=== PATIENT | male | born 1960 | race American Indian/Alaskan Native ===

== ENCOUNTER 2021-03-07 18:16 | Inpatient (IN) | payer MEDICARE ==
[2021-03-07 21:28] LABS: Basophils % (Auto) 0.6 % (0.0-1.8); Eosinophils # (Auto) 0.1 K/mm3 (0.0-0.4); Eosinophils % (Auto) 1.5 % (0.0-4.3); Hematocrit 31.3 % (35.5-45.6); Hemoglobin 10.1 gm/dl (11.8-15.2); Lymphocytes # (Auto) 1.1 K/mm3 (1.2-5.4); Lymphocytes % (Auto) 16.9 % (13.4-35.0); Mean Corpuscular HGB Conc 32 % (32-34); Mean Corpuscular Volume 83 fl (84-94); Monocytes # (Auto) 0.6 K/mm3 (0.0-0.8); Monocytes % (Auto) 9.5 % (0.0-7.3); Platelet Count 315 K/mm3 (140-440); Red Blood Count 3.76 M/mm3 (3.65-5.03); Red Cell Distribution Width 17.8 % (13.2-15.2)
[2021-03-07 21:45] LABS: Albumin 3.8 g/dL (3.9-5); Calcium 9.1 mg/dL (8.4-10.2)
--- NOTE | 2021-03-07 21:45 | Emergency Department Report ---
ED General Adult HPI - General Chief complaint: Medical Clearance Stated complaint: MISSED DIALYSIS Time Seen by Provider: 03/07/21 21:34 Source: EMS Mode of arrival: Stretcher Limitations: No Limitations - History of Present Illness Initial comments: Patient is 60 years old male end-stage renal disease on hemodialysis. Patient brought to the emergency room via EMS from a local senior living stating that patient missed dialysis. Patient stated that last dialysis was 1 week ago. Patient complaining of mild cough and shortness of breath but denied any other symptoms. Associated Symptoms: shortness of breath - Related Data Allergies Allergy/AdvReac Type Severity Reaction Status Date / Time lisinopril Allergy Hives Verified 03/07/21 18:21 ED Review of Systems ROS: Stated complaint: MISSED DIALYSIS Other details as noted in HPI Comment: All other systems reviewed and negative ED Past Medical Hx - Past Medical History Hx Hypertension: Yes Hx Renal Disease: Yes ED Physical Exam - General Limitations: No Limitations General appearance: alert, in no apparent distress - Head Head exam: Present: atraumatic, normocephalic, normal inspection - Eye Eye exam: Present: normal appearance - ENT ENT exam: Present: normal exam, mucous membranes moist - Neck Neck exam: Present: normal inspection, full ROM. Absent: tenderness, meningismus - Respiratory Respiratory exam: Present: normal lung sounds bilaterally - Cardiovascular Cardiovascular Exam: Present: regular rate, normal rhythm, normal heart sounds - GI/Abdominal GI/Abdominal exam: Present: soft, normal bowel sounds. Absent: distended, tenderness, guarding, rebound, rigid, mass, bruit, pulsatile mass, hernia - Back Exam Back exam: Present: normal inspection - Neurological Exam Neurological exam: Present: alert, oriented X3, CN II-XII intact. Absent: motor sensory deficit - Psychiatric Psychiatric exam: Present: normal mood - Skin Skin exam: Present: warm ED Course Vital Signs 03/07/21 18:21 Temperature 98.0 F Pulse Rate 80 Respiratory 16 Rate Blood Pressure 127/78 [Left] O2 Sat by Pulse 99 Oximetry ED Medical Decision Making - Lab Data Result diagrams: 03/07/21 20:59 03/07/21 20:59 - Radiology Data Radiology results: report reviewed - Medical Decision Making Patient is 60 years old male end-stage renal disease on hemodialysis. Patient brought to the emergency room via EMS from a local senior living stating that patient missed dialysis. Patient stated that last dialysis was 1 week ago. Patient complaining of mild cough and shortness of breath but denied any other symptoms. Vital signs remained stable. Labs reviewed that showed a potassium of 4.8, creatinine of 12.4 and a BUN of 70. I discussed the patient with Dr. Duran, patient person investigator and he advised to admit the patient to the hospital for dialysis in the morning. I discussed the patient with Dr. Salomon, Who agreed to admit the patient to medical service for further management. Critical Care Time: Yes Critical care time in (mins) excluding proc time.: 35 Critical care attestation.: If time is entered above; I have spent that time in minutes in the direct care of this critically ill patient, excluding procedure time. ED Disposition Clinical Impression: End-stage renal disease needing dialysis, Hypervolemia Disposition: 02 [facility]ORT TERM [facility]OSPITAL Is pt being admited?: Yes Condition: Stable
--- NOTE | 2021-03-07 22:10 | XRay Report ---
CHEST 1 VIEW INDICATION / CLINICAL INFORMATION: cough. COMPARISON: None available. FINDINGS: SUPPORT DEVICES: None. HEART / MEDIASTINUM: No significant abnormality. LUNGS / PLEURA: Mild prominence pulmonary vasculature. No focal consolidation. There is a 1.3 cm hype rdense nodule within the right midlung zone, likely reflecting calcified granuloma. Correlation with prior imaging would be of benefit. No pneumothorax. ADDITIONAL FINDINGS: No significant additional findings. IMPRESSION: 1. Mild pulmonary vascular congestion without focal consolidation. 2. 1.3 cm round nodule projecting over the right midlung zone, may represent calcified granuloma. Co rrelation with prior imaging may be of benefit. Signer Name: Kwaku Nichole MD Signed: 03/07/2021 10:06 PM Workstation Name: [id number]
[2021-03-08] MEDS ORDERED: MORPHINE 2 MG/1 ML INJ IV PRN (02:12)
[2021-03-08] MEDS ORDERED: MORPHINE 4 MG/1 ML INJ IV PRN (02:12)
[2021-03-08] MEDS ORDERED: MAGNESIUM HYDROXIDE (MOM) ORAL LIQD UDC PO PRN (02:12)
[2021-03-08] MEDS ORDERED: ACETAMINOPHEN 325 MG TAB PO PRN (02:12)
[2021-03-08] MEDS ORDERED: ONDANSETRON 4 MG/2 ML INJ IV PRN (02:12)
--- NOTE | 2021-03-08 02:21 | History and Physical Report ---
History of Present Illness Date of examination: 03/08/21 Date of admission: 03/08/2021 Chief complaint: Shortness of breath History of present illness: 60-year-old -[place] male with known history of end-stage renal disease on dialysis presents to the emergency room today from a local detention stating that he missed his dialysis for about a week. He states he has had some shortness of breath and some mild cough which is nonproductive. Denies any fev er or chills, no headache or dizziness, no diaphoresis, no chest pain. Work-up in the emergency room today, chest x-ray reveals mild pulmonary vascular congestion without focal consolidation. Labs significant for BUN of 70 and creatinine of 12.4 [employer] has been consulted for possible dialysis in the a.m. Past History Past Medical History: hypertension, other (Dementia) Past Surgical History: No surgical history Social history: no significant social history Family history: no significant family history Medications and Allergies Allergies Allergy/AdvReac Type Severity Reaction Status Date / Time lisinopril Allergy Hives Verified 03/07/21 18:21 Review of Systems Constitutional: no fever, no chills Ears, nose, mouth and throat: no nasal congestion, no sore throat Cardiovascular: no chest pain, no palpitations Respiratory: shortness of breath, no cough Gastrointestinal: no abdominal pain, no nausea, no vomiting, no diarrhea Genitourinary Male: no dysuria, no hematuria, no flank pain Musculoskeletal: no neck pain, no low back pain Integumentary: no rash, no pruritis Neurological: no headaches, no confusion Psychiatric: no anxiety, no depression Endocrine: no polyphagia, no polydipsia, no polyuria, no nocturia Exam - Constitutional Vitals: Temp Pulse Resp BP Pulse Ox 98.0 F 80 16 127/78 99 03/07/21 18:21 03/07/21 18:21 03/07/21 18:21 03/07/21 18:21 03/07/21 18:21 General appearance: Present: no acute distress, well-nourished - EENT Eyes: Present: PERRL, EOM intact. Absent: scleral icterus ENT: hearing intact, clear oral mucosa, dentition normal - Neck Neck: Present: supple, normal ROM - Respiratory Respiratory effort: normal Respiratory: bilateral: CTA - Cardiovascular Rhythm: regular Heart Sounds: Present: S1 & S2. Absent: gallop, systolic murmur, diastolic mur mur, rub, click - Extremities Extremities: no ischemia, pulses intact, pulses symmetrical, No edema, normal temperature, normal color, Full ROM, abnormal (Right upper extremity AV fistula) Peripheral Pulses: within normal limits - Abdominal General gastrointestinal: Present: soft, non-tender, non-distended, normal bowel sounds. Absent: mass - Integumentary Integumentary: Present: clear, warm, dry, normal turgor. Absent: rash - Musculoskeletal Musculoskeletal: strength equal bilaterally - Psychiatric Psychiatric: appropriate mood/affect, intact judgment & insight, memory intact, cooperative - Neurologic Neurologic: CNII-XII intact, no focal deficits, moves all extremities Results - Labs CBC & Chem 7: 03/07/21 20:59 03/07/21 20:59 Labs: Abnormal lab results 03/07/21 03/07/21 03/07/21 Range/Units 20:59 20:59 20:59 Hgb 10.1 L (11.8-15.2) gm/dl Hct 31.3 L (35.5-45.6) % MCV 83 L (84-94) fl MCH 27 L (28-32) pg RDW 17.8 H (13.2-15.2) % [place] % (Auto) 9.5 H (0.0-7.3) % Lymph # (Auto) 1.1 L (1.2-5.4) K/mm3 Seg Neutrophils % 71.5 H (40.0-70.0) % Carbon Dioxide 21 L (22-30) mmol/L BUN 70 H (9-20) mg/dL Creatinine 12.4 H (0.8-1.3) mg/dL Glucose 130 H (75-100) mg/dL Alkaline Phosphatase 181 H (35-129) units/L Ammonia 10.0 L (25-60) umol/L Albumin 3.8 L (3.9-5) g/dL Assessment and Plan - Patient Problems (1) End-stage renal disease needing dialysis Current Visit: Yes Status: Acute Plan to address problem: Patient will be scheduled for dialysis. Nephrology consulted for evaluation. (2) COPD (chronic obstructive pulmonary disease) Current Visit: Yes Status: Acute Plan to address problem: Will continue patient on his routine home medications. (3) DVT prophylaxis Current Visit: Yes Status: Acute Plan to address problem: Patient placed on subcutaneous heparin. (4) Full code status Current Visit: Yes Status: Acute Plan to address problem: Patient is full code.
[2021-03-08] MEDS ORDERED: SODIUM CHLORIDE 0.9% 100 ML IV PRN (05:49)
--- NOTE | 2021-03-08 08:58 | Event Note ---
Date: 03/08/21 Patient seen and examined. This is a follow-up from admission earlier this morning. We will continue to plan as outlined in H&P. Total time equals 35 minutes with greater than 50% spent on coordination of care and counseling.
--- NOTE | 2021-03-08 09:34 | Consultation ---
History of Present Illness - Reason for Consult Consult date: 03/08/21 end stage renal disease - History of Present Illness Patient is 60 years old male end-stage renal disease on hemodialysis. Patient brought to the emergency room via EMS from a local alf stating that patient missed dialysis x 1 week ago. Patient complaining of mild cough and shortness of breath but denied any other symptoms. Per records, patient was dx with COVID on Feb 23. Past History Past Medical History: hypertension, other (Dementia) Past Surgical History: No surgical history Social history: no significant social history Family history: no significant family history Medications and Allergies Allergies Allergy/AdvReac Type Severity Reaction Status Date / Time lisinopril Allergy Hives Verified 03/07/21 18:21 Active Meds: Active Medications Acetaminophen (Acetaminophen 325 Mg Tab) 650 mg PO Q4H PRN PRN Reason: Pain MILD(1-3)/Fever >100.5/APARICIO Heparin Sodium (Porcine) (Heparin 5,000 Unit/1 Ml Vial) 5,000 unit SUB-Q Q8HR JUANCARLOS Sodium Chloride (Nacl 0.9%) 100 mls @ 999 mls/hr IV HOLLAND PRN PRN Reason: Hypotension Magnesium Hydroxide (Magnesium Hydroxide (Mom) Oral Liqd Udc) 30 ml PO Q4H PRN PRN Reason: Constipation Morphine Sulfate (Morphine 2 Mg/1 Ml Inj) 2 mg IV Q4H PRN PRN Reason: Pain, Moderate (4-6) Morphine Sulfate (Morphine 4 Mg/1 Ml Inj) 4 mg IV Q4H PRN PRN Reason: Pain , Severe (7-10) Ondansetron HCl (Ondansetron 4 Mg/2 Ml Inj) 4 mg IV Q8H PRN PRN Reason: Nausea And Vomiting Sodium Chloride (Sodium Chloride 0.9% 10 Ml Flush Syringe) 10 ml IV BID JUANCARLOS Sodium Chloride (Sodium Chloride 0.9% 10 Ml Flush Syringe) 10 ml IV PRN PRN PRN Reason: LINE FLUSH Review of Systems All systems: negative Exam - Vital Signs Vital signs: Vital Signs Temp Pulse Resp BP Pulse Ox 98.0 F 80 16 127/78 99 03/07/21 18:21 03/07/21 18:21 03/07/21 18:21 03/07/21 18:21 03/07/21 18:21 - General Appearance General appearance: well-developed, well-nourished, frail EENT: ATNC Respiratory: Clear to Ascultation Heart: regular, S1S2 Gastrointestinal: Present: normal. Absent: tenderness, distended Integumentary: warm and dry Results - Lab Results 03/07/21 20:59 03/07/21 20:59 Most recent lab results Calcium 9.1 mg/dL (8.4-10.2) 03/07/21 20:59 Assessment and Plan Impression: * End stage renal disease * Uremia * COVID 19 infection * Anemia secondary to ESRD * Secondary hyperparathyroidism Plan: * Hemodialysis today as patient has not dialyzed in 1 week * UF as tolerated * Management of COVID 19 per primary team * Dose medications for renal function * Epogen TIW prn * Renal diet.
[2021-03-08] MEDS: HEPARIN 5,000 UNIT/1 ML VIAL SUB-Q SCH ×2 (21:38)
[2021-03-08 23:09] LABS: Hepatitis B Surface Antigen Non-Reactive (Negative); Hepatitis C Virus Antibody Reactive (NonReactive)
[2021-03-09] MEDS: HEPARIN 5,000 UNIT/1 ML VIAL SUB-Q SCH ×3 (06:21→21:27)
[2021-03-09 08:12] LABS: Basophils % (Auto) 0.6 % (0.0-1.8); Eosinophils # (Auto) 0.1 K/mm3 (0.0-0.4); Hematocrit 29.9 % (35.5-45.6); Hemoglobin 9.5 gm/dl (11.8-15.2); Lymphocytes # (Auto) 0.8 K/mm3 (1.2-5.4); Lymphocytes % (Auto) 10.4 % (13.4-35.0); Mean Corpuscular HGB Conc 32 % (32-34); Mean Corpuscular Volume 81 fl (84-94); Monocytes # (Auto) 0.7 K/mm3 (0.0-0.8); Monocytes % (Auto) 8.8 % (0.0-7.3); Platelet Count 252 K/mm3 (140-440); Red Blood Count 3.68 M/mm3 (3.65-5.03); Red Cell Distribution Width 18.6 % (13.2-15.2)
--- NOTE | 2021-03-09 08:23 | Discharge Summary ---
Providers - Providers Date of Admission: 03/08/21 15:30 Date of discharge: 03/09/21 Attending physician: LESLEE BAE 03/07/21 22:58 Consult to Physician [CONS] Stat Comment: Consulting Provider: BRUCE ESTRADA Physician Instructions: Reason For Exam: End-stage renal disease needing dialysis Primary care physician: [facility]IDENTIAL TE[facility] Hospitalization Reason for admission: ESRD, missed HD Condition: Stable Hospital course: Patient is 60 years old male end-stage renal disease on hemodialysis. Patient brought to the emergency room via EMS from a local [facility] stating that patient missed dialysis x 1 week ago. Patient complaining of mild cough and shortness of breath but denied any other symptoms. Per records, patient was dx with COVID on Feb 23. Patient has no respiratory issues since admission and is satting 99% on room air. Patient received hemodialysis shortly after admission. Case management reports that patient's hemodialysis times were changed and now have been confirmed given the positive COVID test. Patient is to undergo COVID PCR prior to discharge to make arrangements for hemodialysis at the dialysis center. Dedicated discharge time 32 minutes Disposition: HOME / SELF CARE / HOMELESS Final Discharge Diagnosis (Prints w/discharge instructions): ESRD with missed HD,. COVID-19 positive test as outpatient Core Measure Documentation - Palliative Care Palliative Care/ Comfort Measures: Not Applicable - Core Measures Any of the following diagnoses?: none Exam - Constitutional Vitals: Temp Pulse Resp BP Pulse Ox 97.9 F 94 H 18 152/94 97 03/09/21 03:26 03/09/21 03:26 03/09/21 03:26 03/09/21 03:26 03/09/21 03:26 General appearance: Present: no acute distress, well-nourished - EENT Eyes: Present: PERRL ENT: hearing intact, clear oral mucosa - Neck Neck: Present: supple, normal ROM - Respiratory Respiratory effort: normal Respiratory: bilateral: CTA - Cardiovascular Heart Sounds: Present: S1 & S2. Absent: rub, click - Extremities Extremities: pulses symmetrical, No edema Peripheral Pulses: within normal limits - Abdominal General gastrointestinal: Present: soft, non-tender, non-distended, normal bowel sounds Male genitourinary: Present: normal - Integumentary Integumentary: Present: clear, warm, dry - Musculoskeletal Musculoskeletal: gait normal, strength equal bilaterally - Psychiatric Psychiatric: appropriate mood/affect, intact judgment & insight - Neurologic Neurologic: CNII-XII intact, moves all extremities Plan Activity: advance as tolerated Weight Bearing Status: Weight Bear as Tolerated Diet: renal Follow up with: PRIMARY CAREMD [Primary Care Provider] - 3-5 Days LINDY KIRKLAND MD [Staff Physician] - 7 Days
[2021-03-09 08:30] LABS: Calcium 9.6 mg/dL (8.4-10.2)
[2021-03-10] MEDS: HEPARIN 5,000 UNIT/1 ML VIAL SUB-Q SCH ×3 (06:55→21:40)
--- NOTE | 2021-03-10 07:51 | Progress Note ---
Assessment and Plan Impression: * End stage renal disease * Uremia * COVID 19 infection * Anemia secondary to ESRD * Secondary hyperparathyroidism Plan: * Note discharge held. * Patient is s/p HD on Saturday * Hemodialysis today - UF as tolerated; patient refused treatment this AM but is now agreeable after haven eaten breakfast * Management of COVID 19 per primary team * Dose medications for renal function * Epogen TIW prn * Renal diet. Subjective Date of service: 03/10/21 Interval history: Patient has no complaints Objective - Vital Signs Vital signs: Vital Signs - 12hr 03/09/21 03/10/21 03/10/21 22:00 00:00 03:27 Temperature 97.4 F L 98.2 F Pulse Rate 86 Respiratory 18 16 Rate Blood Pressure 164/100 134/91 O2 Sat by Pulse 100 99 Oximetry - General Appearance General appearance: frail EENT: ATNC Respiratory: Present: Clear to Ascultation Cardiology: regular, S1S2 Gastrointestinal: normal, no tenderness, no distended Integumentary: no rash, warm and dry Musculoskeletal: other (no edema) - Lab 03/09/21 07:36 03/09/21 07:36 Most recent lab results Calcium 9.6 mg/dL (8.4-10.2) 03/09/21 07:36 Medications & Allergies - Medications Allergies/Adverse Reactions: Allergies lisinopril Allergy (Verified 03/07/21 18:21) Hives Home Medications: Home Medications Medication Instructions Recorded Confirmed Last Taken Type Acetaminophen [Acetaminophen TAB] 650 mg PO Q4H PRN tablet 03/09/21 Unknown Rx Active Medications: Generic Name Dose Route Start Last Admin Trade Name Freq PRN Reason Stop Dose Admin Acetaminophen 650 mg 03/08/21 02:12 Acetaminophen 325 Mg Tab PO Q4H PRN Pain MILD(1-3)/Fever >100.5/APARICIO Heparin Sodium (Porcine) 5,000 unit 03/08/21 14:00 03/10/21 06:55 Heparin 5,000 Unit/1 Ml Vial SUB-Q 5,000 unit Q8HR JUANCARLOS Administration Sodium Chloride 100 mls @ 999 mls/hr 03/08/21 05:49 Nacl 0.9% IV HOLLAND PRN Hypotension Magnesium Hydroxide 30 ml 03/08/21 02:12 Magnesium Hydroxide (Mom) Oral Liqd Udc PO Q4H PRN Constipation Morphine Sulfate 2 mg 03/08/21 02:12 Morphine 2 Mg/1 Ml Inj IV Q4H PRN Pain, Moderate (4-6) Morphine Sulfate 4 mg 03/08/21 02:12 Morphine 4 Mg/1 Ml Inj IV Q4H PRN Pain , Severe (7-10) Ondansetron HCl 4 mg 03/08/21 02:12 Ondansetron 4 Mg/2 Ml Inj IV Q8H PRN Nausea And Vomiting Sodium Chloride 10 ml 03/08/21 10:00 03/09/21 21:28 Sodium Chloride 0.9% 10 Ml Flush Syringe IV 10 ml BID JUANCARLOS Administration Sodium Chloride 10 ml 03/08/21 02:12 Sodium Chloride 0.9% 10 Ml Flush Syringe IV PRN PRN LINE FLUSH
--- NOTE | 2021-03-10 09:17 | Progress Note ---
Assessment and Plan Assessment and plan: ESRD Uremia COVID-19 infection Anemia secondary to ESRD 03/09/2021. Patient with plans of discharge today. Patient with previously missed hemodialysis due to scheduling issues secondary to recent COVID-19 infection. Patient is to have COVID testing today to arrange for appropriate hemodialysis times. History Interval history: No new issues overnight Hospitalist Physical - Constitutional Vitals: Temp Pulse Resp BP Pulse Ox 98.7 F 69 18 158/93 98 03/10/21 08:46 03/10/21 08:46 03/10/21 08:46 03/10/21 08:46 03/10/21 08:46 General appearance: Present: no acute distress, well-nourished - EENT Eyes: Present: PERRL, EOM intact ENT: hearing intact, clear oral mucosa, dentition normal - Neck Neck: Present: supple, normal ROM - Respiratory Respiratory effort: normal Respiratory: bilateral: CTA - Cardiovascular Rhythm: regular Heart Sounds: Present: S1 & S2. Absent: gallop, rub - Extremities Extremities: no ischemia, No edema, Full ROM - Abdominal General gastrointestinal: soft, non-tender, non-distended, normal bowel sounds - Integumentary Integumentary: Present: clear, warm, dry - Neurologic Neurologic: CNII-XII intact, moves all extremities Results - Labs CBC & Chem 7: 03/09/21 07:36 03/09/21 07:36 Labs: Laboratory Last Values WBC 7.6 K/mm3 (4.5-11.0) 03/09/21 07:36 RBC 3.68 M/mm3 (3.65-5.03) 03/09/21 07:36 Hgb 9.5 gm/dl (11.8-15.2) L 03/09/21 07:36 Hct 29.9 % (35.5-45.6) L 03/09/21 07:36 MCV 81 fl (84-94) L 03/09/21 07:36 MCH 26 pg (28-32) L 03/09/21 07:36 MCHC 32 % (32-34) 03/09/21 07:36 RDW 18.6 % (13.2-15.2) H 03/09/21 07:36 Plt Count 252 K/mm3 (140-440) 03/09/21 07:36 Lymph % (Auto) 10.4 % (13.4-35.0) L 03/09/21 07:36 [place] % (Auto) 8.8 % (0.0-7.3) H 03/09/21 07:36 Eos % (Auto) 1.0 % (0.0-4.3) 03/09/21 07:36 Baso % (Auto) 0.6 % (0.0-1.8) 03/09/21 07:36 Lymph # (Auto) 0.8 K/mm3 (1.2-5.4) L 03/09/21 07:36 [place] # (Auto) 0.7 K/mm3 (0.0-0.8) 03/09/21 07:36 Eos # (Auto) 0.1 K/mm3 (0.0-0.4) 03/09/21 07:36 Baso # (Auto) 0.0 K/mm3 (0.0-0.1) 03/09/21 07:36 Seg Neutrophils % 79.2 % (40.0-70.0) H 03/09/21 07:36 Seg Neutrophils # 6.0 K/mm3 (1.8-7.7) 03/09/21 07:36 Sodium 138 mmol/L (137-145) 03/09/21 07:36 Potassium 4.2 mmol/L (3.6-5.0) 03/09/21 07:36 Chloride 97.8 mmol/L (98-107) L 03/09/21 07:36 Carbon Dioxide 23 mmol/L (22-30) 03/09/21 07:36 Anion Gap 21 mmol/L 03/09/21 07:36 BUN 49 mg/dL (9-20) H 03/09/21 07:36 Creatinine 8.8 mg/dL (0.8-1.3) H 03/09/21 07:36 Estimated GFR 7 ml/min 03/09/21 07:36 BUN/Creatinine Ratio 6 % 03/09/21 07:36 Glucose 84 mg/dL (75-100) 03/09/21 07:36 POC Glucose 79 mg/dL (70-105) 03/08/21 21:02 Calcium 9.6 mg/dL (8.4-10.2) 03/09/21 07:36 Total Bilirubin 0.50 mg/dL (0.1-1.2) 03/07/21 20:59 AST 16 units/L (5-40) 03/07/21 20:59 ALT 10 units/L (7-56) 03/07/21 20:59 Alkaline Phosphatase 181 units/L (35-129) H 03/07/21 20:59 Ammonia 10.0 umol/L (25-60) L 03/07/21 20:59 Total Protein 8.1 g/dL (6.3-8.2) 03/07/21 20:59 Albumin 3.8 g/dL (3.9-5) L 03/07/21 20:59 Albumin/Globulin Ratio 0.9 % 03/07/21 20:59 Hepatitis A IgM Ab Non-reactive (NonReactive) 03/08/21 22:00 Hep Bs Antigen Non-reactive (Negative) 03/08/21 22:00 Hep B Core IgM Ab Non-reactive (NonReactive) 03/08/21 22:00 Hepatitis C Antibody Reactive (NonReactive) A 03/08/21 22:00 [place]/IV: Voiding Method Toilet Active Medications - Current Medications Current Medications: Generic Name Dose Route Start Last Admin Trade Name Freq PRN Reason Stop Dose Admin Acetaminophen 650 mg 03/08/21 02:12 Acetaminophen 325 Mg Tab PO Q4H PRN Pain MILD(1-3)/Fever >100.5/APARICIO Heparin Sodium (Porcine) 5,000 unit 03/08/21 14:00 03/10/21 06:55 Heparin 5,000 Unit/1 Ml Vial SUB-Q 5,000 unit Q8HR JUANCARLOS Administration Sodium Chloride 100 mls @ 999 mls/hr 03/08/21 05:49 Nacl 0.9% IV HOLLAND PRN Hypotension Magnesium Hydroxide 30 ml 03/08/21 02:12 Magnesium Hydroxide (Mom) Oral Liqd Udc PO Q4H PRN Constipation Morphine Sulfate 2 mg 03/08/21 02:12 Morphine 2 Mg/1 Ml Inj IV Q4H PRN Pain, Moderate (4-6) Morphine Sulfate 4 mg 03/08/21 02:12 Morphine 4 Mg/1 Ml Inj IV Q4H PRN Pain , Severe (7-10) Ondansetron HCl 4 mg 03/08/21 02:12 Ondansetron 4 Mg/2 Ml Inj IV Q8H PRN Nausea And Vomiting Sodium Chloride 10 ml 03/08/21 10:00 03/09/21 21:28 Sodium Chloride 0.9% 10 Ml Flush Syringe IV 10 ml BID JUANCARLOS Administration Sodium Chloride 10 ml 03/08/21 02:12 Sodium Chloride 0.9% 10 Ml Flush Syringe IV PRN PRN LINE FLUSH
[2021-03-10] MEDS ORDERED: HALOPERIDOL LACTATE 5 MG/1 ML INJ IM ONE (12:00)
[2021-03-10 17:34] VITALS: BP 140/88
== END 2021-03-10 23:32 | DRG 177 ==
LOC: ED 18:16 → 3A 03-08 02:13 → 4A 03-08 08:31 → OBSVTOIN 03-08 15:30
PROVIDERS: ADMIT Internal Medicine Geriatric Medicine; ATTEND Hospitalist
PROC: 5A1D70Z Performance of Urinary Filtration, Intermittent, Less than 6 Hours Per Day (ICD-10-PCS; principal; 2021-03-08)
DX: U07.1 COVID-19 (principal); N18.6 End stage renal disease; I12.0 Hypertensive chronic kidney disease with stage 5 chronic kidney disease or end stage renal disease; N25.81 Secondary hyperparathyroidism of renal origin; E87.70 Fluid overload, unspecified; J44.9 Chronic obstructive pulmonary disease, unspecified; D63.1 Anemia in chronic kidney disease
CPT/HCPCS: 36415; 71045; 80048; 80053; 80074; 82140; 82962; 85025; 93005; G0378; J1630; J1644; U0003

== ENCOUNTER 2021-07-19 05:49 | Emergency (ER) | payer MEDICARE ==
--- NOTE | 2021-07-19 06:32 | Emergency Department Report ---
ED Fall HPI - General Chief Complaint: Fall Stated Complaint: FALL Time Seen by Provider: 07/19/21 06:09 Source: EMS Mode of arrival: Stretcher - History of Present Illness Initial Comments: 60 yo M with ESRD on dialysis who present with injury to his upper eyebrow s/p fall this morning. He says he woke up and fell a little dizzy and fell and struck the right side of his forehead. He reports right upper eyebrow laceration. Pt denies any APARICIO or CP or SOB or Palpitation. No other modifying or associated factors. - Related Data Previous Rx's Medication Instructions Recorded Last Taken Type Acetaminophen [Acetaminophen TAB] 650 mg PO Q4H PRN tablet 03/09/21 Unknown Rx Allergies Allergy/AdvReac Type Severity Reaction Status Date / Time lisinopril Allergy Hives Verified 03/07/21 18:21 ED Review of Systems ROS: Stated complaint: FALL Other details as noted in HPI Comment: All other systems reviewed and negative Musculoskeletal: other (right upper eyebrow laceration) ED Past Medical Hx - Past Medical History Hx Hypertension: Yes Hx Renal Disease: Yes - Social History Smoking Status: Never Smoker - Medications Home Medications: Home Medications Medication Instructions Recorded Confirmed Last Taken Type Acetaminophen [Acetaminophen TAB] 650 mg PO Q4H PRN tablet 03/09/21 Unknown Rx ED Physical Exam - General Limitations: No Limitations General appearance: alert, in no apparent distress - Head Head exam: Present: other (small right upper orbital laceration 0.6 cm V shape laceration) - Eye Eye exam: Present: normal appearance Pupils: Present: normal accommodation - ENT ENT exam: Present: normal exam, normal orophraynx, mucous membranes moist - Neck Neck exam: Present: normal inspection, full ROM. Absent: tenderness - Respiratory Respiratory exam: Present: normal lung sounds bilaterally. Absent: respiratory distress, accessory muscle use - Cardiovascular Cardiovascular Exam: Present: regular rate, normal rhythm, normal heart sounds - GI/Abdominal GI/Abdominal exam: Present: soft, normal bowel sounds. Absent: distended, tenderness - Back Exam Back exam: Absent: tenderness - Neurological Exam Neurological exam: Present: alert, oriented X3 - Psychiatric Psychiatric exam: Present: normal affect, normal mood - Skin Skin exam: Present: warm, normal color ED Course Vital Signs 07/19/21 07/19/21 07/19/21 06:01 06:39 09:11 Temperature 98.5 F Pulse Rate 59 L Respiratory 16 10 L Rate Blood Pressure Blood Pressure 159/89 [Right] O2 Sat by Pulse 98 98 98 Oximetry 07/19/21 07/19/21 07/19/21 09:15 09:31 09:45 Temperature Pulse Rate 52 L 51 L 54 L Respiratory 11 L 10 L 11 L Rate Blood Pressure 170/86 163/87 168/90 Blood Pressure [Right] O2 Sat by Pulse 99 98 99 Oximetry 07/19/21 07/19/21 07/19/21 10:01 10:31 11:01 Temperature Pulse Rate 54 L 63 58 L Respiratory 11 L 18 10 L Rate Blood Pressure 158/95 135/73 128/75 Blood Pressure [Right] O2 Sat by Pulse 99 95 96 Oximetry 07/19/21 07/19/21 07/19/21 11:06 11:15 11:31 Temperature Pulse Rate 88 Respiratory 18 Rate Blood Pressure 171/108 176/96 Blood Pressure 159/99 [Right] O2 Sat by Pulse 99 98 98 Oximetry 07/19/21 11:45 Temperature Pulse Rate Respiratory Rate Blood Pressure 168/86 Blood Pressure [Right] O2 Sat by Pulse 98 Oximetry - Reevaluation(s) Reevaluation #1: 07/19/21 06:35 here with fall -- and noted with right upper orbital small laceration 0.6 cm V shaped-- pt reports taken blood thinner so will go ahead and order CT head for any intracranial abnormality/bleeding-- CBC and CMP order for any infectious process or electrolyte abnormality-- Reevaluation #2: 07/19/21 12:24 Lab reviewed with noted elevated BUN and creatinine started 39/7.1 with normal potassium likely as result of his ESRD-- Urinalysis is still pending at this time-- Reevaluation #3: 07/19/21 12:26 CT head noted with FINDINGS: CEREBRAL HEMISPHERES: Generalized atrophy and bilateral regions of periventricular white matter hypoattenuation compatible with microvascular ischemia are demonstrated. No midline shift. Basal cisterns patent. Prior anterior left frontal infarction. Small lacunar infarctions within the thalami. HEMORRHAGE: None. CEREBELLUM / BRAINSTEM: No significant abnormality. ORBITS: No significant abnormality. SOFT TISSUES: No significant abnormality. SKULL: No significant abnormality. PARANASAL SINUSES / MASTOID AIR CELLS: Normal as visualized. ADDITIONAL FINDINGS: Moderate bilateral degenerative changes of the tempor omandibular joints. IMPRESSION: 1. No acute intracranial abnormality. 2. Findings compatible with atrophy and microvascular ischemic disease. Prior anterior left frontal infarction. 07/19/21 12:30 Pt will discharge home to close follow up with his PCP Reevaluation #4: 07/19/21 12:32 No stitches needed considering the length of laceration and shallowness -- 07/19/21 12:33 Unable to produce urine and In and Out tried with no output this patient likely not making urine any more-- ED Medical Decision Making - Lab Data Result diagrams: 07/19/21 07:16 07/19/21 07:16 Critical care attestation.: If time is entered above; I have spent that time in minutes in the direct care of this critically ill patient, excluding procedure time. ED Disposition Clinical Impression: End-stage renal disease needing dialysis, Laceration Fall Qualifiers: Encounter type: initial encounter Qualified Code(s): W19.XXXA - Unspecified fall, initial encounter Orbital laceration Qualifiers: Encounter type: initial encounter Laterality: right Qualified Code(s): S05.41XA - Penetrating wound of orbit with or without foreign body, right eye, initial encounter Disposition: 01 HOME / SELF CARE / HOMELESS Is pt being admited?: No Does the pt Need Aspirin: No Condition: Stable Instructions: Dialysis Additional Instructions: Call and schedule follow-up with your primary doctor in the next 3 to 5 days for progress Please do not hesitate to call or return to emergency room if your symptoms worsen Referrals: PRIMARY MD DESIRAE [Primary Care Provider] - 3-5 Days Time of Disposition: 12:33
--- NOTE | 2021-07-19 06:56 | Cat Scan Report ---
CT HEAD WITHOUT CONTRAST INDICATION / CLINICAL INFORMATION: Fall from a standing position. TECHNIQUE: CT head was performed without administration of intravenous contrast. All CT scans at this location are performed using CT dose reduction for ALARA by means of automated exposure control. COMPARISON: None available. FINDINGS: CEREBRAL HEMISPHERES: Generalized atrophy and bilateral regions of periventricular white matter hypoa ttenuation compatible with microvascular ischemia are demonstrated. No midline shift. Basal cisterns patent. Prior anterior left frontal infarction. Small lacunar infarctions within the thalami. HEMORRHAGE: None. CEREBELLUM / BRAINSTEM: No significant abnormality. ORBITS: No significant abnormality. SOFT TISSUES: No significant abnormality. SKULL: No significant abnormality. PARANASAL SINUSES / MASTOID AIR CELLS: Normal as visualized. ADDITIONAL FINDINGS: Moderate bilateral degenerative changes of the temporomandibular joints. IMPRESSION: 1. No acute intracranial abnormality. 2. Findings compatible with atrophy and microvascular ischemic disease. Prior anterior left frontal i nfarction. Signer Name: Lang Barfield II, MD Signed: 07/19/2021 6:52 AM Workstation Name: [id number]
[2021-07-19 07:44] LABS: Basophils % (Auto) 0.6 % (0.0-1.8); Eosinophils % (Auto) 1.4 % (0.0-4.3); Hematocrit 42.7 % (35.5-45.6); Hemoglobin 13.5 gm/dl (11.8-15.2); Lymphocytes # (Auto) 0.8 K/mm3 (1.2-5.4); Lymphocytes % (Auto) 28.1 % (13.4-35.0); Mean Corpuscular HGB Conc 32 % (32-34); Mean Corpuscular Volume 86 fl (84-94); Monocytes # (Auto) 0.2 K/mm3 (0.0-0.8); Monocytes % (Auto) 7.8 % (0.0-7.3); Platelet Count 143 K/mm3 (140-440); Red Blood Count 4.95 M/mm3 (3.65-5.03); Red Cell Distribution Width 16.4 % (13.2-15.2)
[2021-07-19 09:08] LABS: Albumin 3.8 g/dL (3.9-5); Calcium 9.4 mg/dL (8.4-10.2)
[2021-07-19 12:18] VITALS: BP 168/86
== END 2021-07-19 17:26 | disposition home or self-care (01) ==
LOC: ED 05:49
DX: S05.41XA Penetrating wound of orbit with or without foreign body, right eye, initial encounter (principal); I12.0 Hypertensive chronic kidney disease with stage 5 chronic kidney disease or end stage renal disease; N18.6 End stage renal disease; Z99.2 Dependence on renal dialysis; Z88.8 Allergy status to other drugs, medicaments and biological substances; W19.XXXA Unspecified fall, initial encounter; Y93.89 Activity, other specified; Y92.89 Other specified places as the place of occurrence of the external cause; Y99.8 Other external cause status
CPT/HCPCS: 36415; 70450; 80053; 85025; 99285

== ENCOUNTER 2021-07-23 00:58 | Emergency (ER) | payer MEDICARE ==
--- NOTE | 2021-07-23 03:32 | Emergency Department Report ---
HPI - General Chief Complaint: Fall Time Seen by Provider: 07/23/21 03:22 - [facility] HPI: Room 22 The patient is a 60-year-old male present with a chief complaint of head injury after fall. Patient is a [facility] resident reportedly fell this evening str iking his head. Patient has a hematoma to the left forehead. Patient denies loss of consciousness. Patient denies headache nausea or vomiting ED Past Medical Hx - Past Medical History Previous Medical History?: Yes Hx Hypertension: Yes Hx Renal Disease: Yes (On dialysis) Hx COPD: Yes Hx Dementia: Yes Additional medical history: STROKE - Surgical History Past Surgical History?: No - Family History Family history: no significant - Social History Smoking Status: Current Every Day Smoker (1 pack/day) Substance Use Type: None - Medications Home Medications: Home Medications Medication Instructions Recorded Confirmed Last Taken Type Acetaminophen [Acetaminophen TAB] 650 mg PO Q4H PRN tablet 03/09/21 Unknown Rx ED Review of Systems ROS: Stated complaint: FALL/HEAD INJURY Other details as noted in HPI Constitutional: no symptoms reported Eyes: denies: eye pain ENT: denies: throat pain Respiratory: no symptoms reported Cardiovascular: denies: chest pain Endocrine: no symptoms reported Gastrointestinal: denies: nausea, vomiting Genitourinary: denies: dysuria Musculoskeletal: denies: back pain Neurological: denies: headache Physical Exam - Physical Exam Vital Signs: Vital Signs 07/23/21 03:05 Temperature 98 F Pulse Rate 76 Respiratory 16 Rate Blood Pressure 126/87 O2 Sat by Pulse 100 Oximetry Physical Exam: GENERAL: The patient is well-developed well-nourished male lying on stretcher w ith obvious hematoma to left forehead but not appearing to be in acute distress. [] HEENT: Normocephalic. Approximately golf ball size hematoma to the left forehead. Extraocular motions are intact. Patient has moist mucous membranes. NECK: Supple. No axial step-off CHEST/LUNGS: Clear to auscultation. There is no respiratory distress noted. HEART/CARDIOVASCULAR: Regular. There is no tachycardia. There is no gallop rub or murmur. ABDOMEN: Abdomen is soft, nontender. Patient has normal bowel sounds. There is no abdominal distention. SKIN: There is no rash. There is no edema. There is no diaphoresis. NEURO: The patient is awake and alert. The patient is intermittently cooperative with neurologic exam. Extraocular muscles intact, symmetric smile, tongue midline,. The patient has no focal neurologic deficits. The patient has normal speech. GCS 15 MUSCULOSKELETAL: There is no evidence of acute injury. ED Course Vital Signs 07/23/21 03:05 Temperature 98 F Pulse Rate 76 Respiratory 16 Rate Blood Pressure 126/87 O2 Sat by Pulse 100 Oximetry ED Medical Decision Making - Radiology Data Radiology results: report reviewed (CT head, CT cervical spine), image reviewed (CT head, CT cervical spine) [facility] [address] [place] [address] Cat Scan Report Signed Patient: TRISTIAN BROWNE MR#: [id number] 00 : 1960 Acct:[id number] Age/Sex: 60 / M ADM Date: 07/23/21 Loc: ED Attending Dr: Ordering Physician: ANGELI CERDA MD Date of Service: 07/23/21 Procedure(s): CT head/brain wo con Accession Number(s): [id number] cc: ANGELI CERDA MD CT HEAD WITHOUT CONTRAST INDICATION / CLINICAL INFORMATION: Head injury after fall. TECHNIQUE: All CT scans at this location are performed using CT dose reduction for ALARA by means of automated exposure control. COMPARISON: Head CT 07/19/2021 FINDINGS: HEMORRHAGE: None. EXTRA-AXIAL SPACES: Normal in size and morphology for the patient's age. VENTRICULAR SYSTEM: Slightly dilated secondary to central atrophy/involution, unchanged CEREBRAL PARENCHYMA: Left frontal lobe encephalomalacia, unchanged. Moderate to severe periventricular and deep white matter microangiopathy, unchanged. Moderate cerebral atrophy No significant abnormality. No acute territorial infarct. MIDLINE SHIFT OR HERNIATION: None. CEREBELLUM / BRAINSTEM: No significant abnormality. ORBITS: Normal as visualized. SOFT TISSUES of HEAD: Small left frontal scalp hematoma CALVARIUM: No significant abnormality. PARANASAL SINUSES / MASTOID AIR CELLS: Normal as visualized. ADDITIONAL FINDINGS: None. IMPRESSION: 1. Small left frontal scalp hematoma. No intracranial bleed. 2. 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 Transcribed By: TL Dictated By: Emerson Sandoval MD Electronically Authenticated By: Emerson Sandoval MD Signed Date/Time: 07/23/21515 DD/ 0508 TD/TT: [facility] [address] [place] [address] Cat Scan Report Signed Patient: TRISTIAN BROWNE MR#: [id number] 00 : 1960 Acct:[id number] Age/Sex: 60 / M ADM Date: 07/23/21 Loc: ED Attending Dr: Duke mays Physician: ANGELI CERDA MD Date of Service: 07/23/21 Procedure(s): CT cervical spine wo con Accession Number(s): [id number] cc: ANGELI CERDA MD CT CERVICAL SPINE WITHOUT CONTRAST INDICATION: Head injury after fall. Neck pain TECHNIQUE: All CT scans at this location are performed using CT dose reduction for ALARA by means of automated exposure control. Axial CT images were obtained through the cervical spine. Sagittal and coronal reformatted images were produced. COMPARISON: None available. FINDINGS: Fracture: None. Subluxation: None. Spinal canal: No significant compromise. Disc spaces: Moderately advanced discogenic degenerative disease C3-7. Prominent Schmorl's node superior endplate C7. Facet joints: Normal. Paraspinal soft tissues: No soft tissue swelling. Normal. Additional findings: Moderate vascular calcifications both carotid arteries. - Differential Diagnosis Closed head injury, intracranial hemorrhage, Critical care attestation.: If time is entered above; I have spent that time in minutes in the direct care of this critically ill patient, excluding procedure time. ED Disposition Clinical Impression: Closed head injury Disposition: [facility] Is pt being admited?: No Does the pt Need Aspirin: No Condition: Stable Additional Instructions: Return to the emergency department should you develop worsening symptoms, i nability to tolerate food or liquids, high fever or any other concerns Referrals: PRIMARY CAREMD [Referring] - 3-5 Days Time of Disposition: 05:26
--- NOTE | 2021-07-23 05:21 | Cat Scan Report ---
CT HEAD WITHOUT CONTRAST INDICATION / CLINICAL INFORMATION: Head injury after fall. TECHNIQUE: All CT scans at this location are performed using CT dose reduction for ALARA by means of automated e xposure control. COMPARISON: Head CT 07/19/2021 FINDINGS: HEMORRHAGE: None. EXTRA-AXIAL SPACES: Normal in size and morphology for the patient's age. VENTRICULAR SYSTEM: Slightly dilated secondary to central atrophy/involution, unchanged CEREBRAL PARENCHYMA: Left frontal lobe encephalomalacia, unchanged. Moderate to severe periventricula r and deep white matter microangiopathy, unchanged. Moderate cerebral atrophy No significant abnormal ity. No acute territorial infarct. MIDLINE SHIFT OR HERNIATION: None. CEREBELLUM / BRAINSTEM: No significant abnormality. ORBITS: Normal as visualized. SOFT TISSUES of HEAD: Small left frontal scalp hematoma CALVARIUM: No significant abnormality. PARANASAL SINUSES / MASTOID AIR CELLS: Normal as visualized. ADDITIONAL FINDINGS: None. IMPRESSION: 1. Small left frontal scalp hematoma. No intracranial bleed. 2. 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
--- NOTE | 2021-07-23 05:21 | Cat Scan Report ---
CT CERVICAL SPINE WITHOUT CONTRAST INDICATION: Head injury after fall. Neck pain TECHNIQUE: All CT scans at this location are performed using CT dose reduction for ALARA by means of automated e xposure control. Axial CT images were obtained through the cervical spine. Sagittal and coronal reformatted images we re produced. COMPARISON: None available. FINDINGS: Fracture: None. Subluxation: None. Spinal canal: No significant compromise. Disc spaces: Moderately advanced discogenic degenerative disease C3-7. Prominent Schmorl's node super ior endplate C7. Facet joints: Normal. Paraspinal soft tissues: No soft tissue swelling. Normal. Additional findings: Moderate vascular calcifications both carotid arteries. Lung apices: Severe bullous emphysema both lung apices. IMPRESSION: 1. No acute findings. 2. Moderately advanced discogenic degenerative disease cervical spine 3. Severe bullous emphysema 4. Moderate vascular calcifications both carotid artery bulbs. Signer Name: Emerson Sandoval MD Signed: 07/23/2021 5:16 AM Workstation Name: [id number]
[2021-07-23 11:49] VITALS: BP 177/95
== END 2021-07-23 08:00 ==
LOC: ED 00:58
DX: S09.90XA Unspecified injury of head, initial encounter (principal); I12.0 Hypertensive chronic kidney disease with stage 5 chronic kidney disease or end stage renal disease; N18.6 End stage renal disease; Z99.2 Dependence on renal dialysis; F03.90 Unspecified dementia, unspecified severity, without behavioral disturbance, psychotic disturbance, mood disturbance, and anxiety; J44.9 Chronic obstructive pulmonary disease, unspecified; F17.290 Nicotine dependence, other tobacco product, uncomplicated; I63.9 Cerebral infarction, unspecified; W19.XXXA Unspecified fall, initial encounter; Y93.89 Activity, other specified; Y92.129 Unspecified place in nursing home as the place of occurrence of the external cause; Y99.8 Other external cause status
CPT/HCPCS: 70450; 72125; 99284